=== PATIENT | female | born 1985 | race Caucasian/White ===

== ENCOUNTER 2018-03-16 18:30 | Emergency (ER) | payer MEDICAID ==
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
[2018-03-16] MEDS ORDERED: ACETAMINOPHEN 325 MG TABLET PO ONE (19:28)
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
[2018-03-16 20:46] LABS: APPEARANCE,URINE CLOUDY; BILIRUBIN,URINE NEGATIVE (NEGATIVE); COLOR,URINE AMBER; GLUCOSE, URINE NEGATIVE (NEGATIVE); KETONES,URINE TRACE mg/dL (NEGATIVE); LEUKOCYTE ESTERASE,URINE NEGATIVE (NEGATIVE); NITRITE,URINE NEGATIVE (NEGATIVE); PROTEIN,URINE 30 mg/dL (NEGATIVE); URINE SPECIFIC GRAVITY 1.025
[2018-03-16 21:05] VITALS: BP 134/81
== END 2018-03-16 21:05 | disposition home or self-care (01) ==
LOC: ER 18:30
DX: S20.212A Contusion of left front wall of thorax, initial encounter (principal); S50.12XA Contusion of left forearm, initial encounter; S09.93XA Unspecified injury of face, initial encounter; M79.10 Myalgia, unspecified site; Y00.XXXA Assault by blunt object, initial encounter; Y92.009 Unspecified place in unspecified non-institutional (private) residence as the place of occurrence of the external cause; F17.200 Nicotine dependence, unspecified, uncomplicated; Z88.0 Allergy status to penicillin
CPT/HCPCS: 99284; 81025; 81001; 73090; 71101; 70486; J3490